=== PATIENT | male | born 1955 | race Caucasian/White ===

== ENCOUNTER 2017-06-15 22:20 | Emergency (ER) | END 2017-06-16 03:15 | disposition home or self-care (01) ==

== ENCOUNTER 2017-10-29 13:09 | Emergency (ER) | END 2017-10-30 00:19 | disposition home or self-care (01) ==

== ENCOUNTER 2017-12-28 06:54 | Day surgery (SDC) | END 2017-12-28 11:55 | disposition home or self-care (01) ==